=== PATIENT | male | born 1955 | race American Indian/Alaskan Native ===

== ENCOUNTER 2016-08-10 09:40 | Emergency (ER) | payer OTHER ==
[2016-08-10 11:14] VITALS: BP 131/95
[2016-08-10 11:54] LABS: Albumin 5.1 g/dL (3.9-5); Albumin/Globulin Ratio 1.3 %; BUN/Creatinine Ratio 12.5; Bilirubin,Total 0.7 mg/dL (0.1-1.2); Calcium 10.3 mg/dL (8.4-10.2); Total Protein 8.9 g/dL (6.3-8.2)
[2016-08-10 11:55] LABS: Chloride 94.3 mmol/L (98-107)
[2016-08-10 12:00] LABS: Basophils % (Auto) 0.4 % (0.0-1.8); Eosinophils % (Auto) 1.2 % (0.0-4.3); Hematocrit 51.3 % (35.5-45.6); Hemoglobin 17.1 gm/dl (11.8-15.2); Mean Corpuscular HGB Conc 33 % (32-34); Mean Corpuscular Hemoglobin 29 pg (28-32); Mean Corpuscular Volume 88 fl (84-94); Platelet Count 182 K/mm3 (140-440); Red Blood Count 5.84 M/mm3 (3.65-5.03); Red Cell Distribution Width 14.5 % (13.2-15.2); White Blood Count 9.8 K/mm3 (4.5-11.0)
--- NOTE | 2016-08-13 15:17 | ED Elopement Review ---
ED Pt Elopement review - Results review Lab results: Laboratory Tests 08/10/16 08/10/16 08/10/16 11:18 11:18 14:27 WBC 9.8 RBC 5.84 H Hgb 17.1 H Hct 51.3 H MCV 88 MCH 29 MCHC 33 RDW 14.5 Plt Count 182 Lymph % (Auto) 14.2 [place] % (Auto) 11.0 H Eos % (Auto) 1.2 Baso % (Auto) 0.4 Lymph # 1.4 [place] # 1.1 H Eos # 0.1 Baso # 0.0 Seg Neutrophils % 73.2 H Seg Neutrophils # 7.2 Sodium 135 L Potassium 4.0 Chloride 94.3 L Carbon Dioxide 22 Anion Gap 23 BUN 35 H Creatinine 2.8 H Estimated GFR 28 BUN/Creatinine Ratio 12.50 Glucose 106 H Calcium 10.3 H Total Bilirubin 0.7 AST 19 ALT 11 Alkaline Phosphatase 64 Troponin T 0.016 0.021 Total Protein 8.9 H Albumin 5.1 H Albumin/Globulin Ratio 1.3 Lipase 42 - Call Back decision Pt Call Back Decision: Call pt to return to ED [facility] (renal Failure abd pain)
== END 2016-08-10 19:41 | disposition left against medical advice (07) ==
LOC: ED 09:40
DX: R11.2 Nausea with vomiting, unspecified (principal); R10.13 Epigastric pain; R10.12 Left upper quadrant pain; F17.200 Nicotine dependence, unspecified, uncomplicated; I10 Essential (primary) hypertension; E78.00 Pure hypercholesterolemia, unspecified; Z53.21 Procedure and treatment not carried out due to patient leaving prior to being seen by health care provider
CPT/HCPCS: 36415; 80053; 83690; 84484; 85025; 93005; 93010

== ENCOUNTER 2020-08-06 10:39 | Emergency (ER) | payer OTHER ==
--- NOTE | 2020-08-06 11:36 | Emergency Department Report ---
ED Lower Extremity HPI - General Chief Complaint: Extremity Injury, Lower Stated Complaint: LT ANKLE INJURY Time Seen by Provider: 08/06/20 11:30 Source: patient Mode of arrival: Ambulatory Limitations: No Limitations - History of Present Illness Initial Comments: 64-year-old male with a past medical history of hypertension and thyroid disease presents to the ER today with complaints of injury to his left ankle/left foot. Patient states that yesterday he was walking down his back steps when he missed a step fell and "rolled" his left ankle. He states that it was about 4-5 steps, and he was snf down when his injury occurred. Patient denies any head injury. He complains mainly of medial, lateral and anterior ankle pain and pain lateral left foot. He reports pain with movement of the ankle and the foot and with ambulation and weightbearing. He reports no swelling, bruising, erythema or any other symptoms at this time. MD Complaint: ankle injury, foot injury -: Sudden (yesterday ) - Related Data Home Medications Medication Instructions Recorded Confirmed Last Taken Lisinopril/Hydrochlorothiazide 1 tab PO QDAY 08/27/14 08/06/20 03/11/15 [Zestoretic 20-12.5 mg] Simvastatin 20 mg PO QHS 08/27/14 08/06/20 03/11/15 Previous Rx's Medication Instructions Recorded Last Taken Type Naproxen [Naprosyn] 500 mg PO BID #20 tablet 08/06/20 Unknown Rx Allergies Allergy/AdvReac Type Severity Reaction Status Date / Time mushroom AdvReac Rash Verified 08/06/20 10:47 ED Review of Systems ROS: Stated complaint: LT ANKLE INJURY Other details as noted in HPI Comment: All other systems reviewed and negative Constitutional: denies: chills, fever Eyes: denies: eye pain, eye discharge, vision change ENT: denies: ear pain, throat pain Respiratory: denies: cough, shortness of breath, SOB with exertion, SOB at rest, wheezing Cardiovascular: denies: chest pain, palpitations Endocrine: no symptoms reported Gastrointestinal: denies: abdominal pain, nausea, diarrhea Genitourinary: denies: urgency, dysuria, frequency, hematuria, discharge, testicular pain, testicular mass Musculoskeletal: arthralgia. denies: joint swelling Skin: denies: rash, lesions Neurological: denies: headache, weakness, paresthesias Psychiatric: denies: anxiety, depression, auditory hallucinations, visual hallucinations, homicidal thoughts Hematological/Lymphatic: denies: easy bleeding, easy bruising ED Past Medical Hx - Past Medical History Hx Hypertension: Yes Hx of Cancer: Yes (prostate) Additional medical history: hyperthyroid. high cholesterol. R ing her[place]. CAD. ENLARGED HEART - Surgical History Additional Surgical History: Prostate removal - Social History Smoking Status: Current Every Day Smoker Substance Use Type: None - Medications Home Medications: Home Medications Medication Instructions Recorded Confirmed Last Taken Type Lisinopril/Hydrochlorothiazide 1 tab PO QDAY 08/27/14 08/06/20 03/11/15 History [Zestoretic 20-12.5 mg] Simvastatin 20 mg PO QHS 08/27/14 08/06/20 03/11/15 History Naproxen [Naprosyn] 500 mg PO BID #20 tablet 08/06/20 Unknown Rx ED Physical Exam - General Limitations: No Limitations General appearance: alert, in no apparent distress - Head Head exam: Present: atraumatic, normocephalic, normal inspection - Eye Eye exam: Present: normal appearance, PERRL, EOMI Pupils: Present: normal accommodation - ENT ENT exam: Present: normal exam, mucous membranes moist - Neck Neck exam: Present: normal inspection, full ROM - Respiratory Respiratory exam: Present: respiratory distress. Absent: normal lung sounds bilaterally - Cardiovascular Cardiovascular Exam: Present: regular rate, normal rhythm, normal heart sounds - GI/Abdominal GI/Abdominal exam: Present: soft. Absent: distended, tenderness, guarding - Expanded Lower Extremity Exam Left Ankle exam: Present: normal inspection, full ROM, tenderness (Mild tenderness to the anterior left ankle ). Absent: swelling, abrasion, laceration, ecchymosis, deformity, crepidus, dislocation, erythema Foot/Toe exam: Present: normal inspection, full ROM, tenderness (Mild tenderness to palpation to the base of the fifth metatarsal bone), tenderness at base of 5th metatarsal. Absent: swelling, abrasion, laceration, ecchymosis, deformity, crepidus, dislocation, erythema, amputation, puncture wound, foreign body, calcaneal tenderness, nail avulsion, subungual hematoma Neuro vascular tendon exam: Present: no vascular compromise Gait: Positive: observed and normal - Neurological Exam Neurological exam: Present: alert, oriented X3, CN II-XII intact, normal gait - Psychiatric Psychiatric exam: Present: normal affect, normal mood - Skin Skin exam: Present: intact ED Course Vital Signs 08/06/20 08/06/20 10:44 13:01 Temperature 98.2 F Pulse Rate 98 H 89 Respiratory 18 Rate Blood Pressure 175/115 Blood Pressure 156/95 [Left] O2 Sat by Pulse 98 97 Oximetry ED Lower Extremity MDM - Radiology Data Radiology results: report reviewed Patient: NEWTON ESTEVEZ JR MR#: [id number] : 1955 Acct:[id number] Age/Sex: 64 / M ADM Date: 08/06/20 Loc: ED Attending Dr: Ordering Physician: MORENITA FERRERA Date of Service: 08/06/20 Procedure(s): XR foot 3+V LT Accession Number(s): [id number] cc: MORENITA FERRERA Fluoro Time In Minutes: LEFT FOOT 3 VIEW(S) INDICATION / CLINICAL INFORMATION: foot injury COMPARISON: None available. FINDINGS: BONES / JOINT(S): No acute fracture or subluxation. There is a hallux valgus deformity. Inferior calcaneal enthesopathy is noted. SOFT TISSUES: No significant abnormality. ADDITIONAL FINDINGS: None. Signer Name: Karen Urias MD Signed: 08/06/2020 12:12 PM Workstation Name: [id number] Transcribed By: SS Dictated By: KAREN URIAS Electronically Authenticated By: KAREN URIAS Signed Date/Time: 08/06/20 1212 DD/ 1211 TD/TT: Patient: NEWTON ESTEVEZ JR MR#: [id number] : 1955 Acct:[id number] Age/Sex: 64 / M ADM Date: 08/06/20 Loc: ED Attending Dr: Ordering Physician: MORENITA FERRERA Date of Service: 08/06/20 Procedure(s): XR ankle 3+V LT Accession Number(s): [id number] cc: MORENITA FERRERA Fluoro Time In Minutes: LEFT ANKLE 3 VIEW(S) INDICATION / CLINICAL INFORMATION: ankle injury COMPARISON: None available. FINDINGS: BONES / JOINT(S): No acute fracture or subluxation. There is inferior calcaneal enthesopathy at the plantar fascial insertion. SOFT TISSUES: No significant abnormality. ADDITIONAL FINDINGS: None. Signer Name: Karen Urias MD Signed: 08/06/2020 12:12 PM Workstation Name: [id number] Transcribed By: SS Dictated By: KAREN URIAS Electronically Authenticated By: KAREN URIAS Signed Date/Time: 08/06/201211 DD/ 11 TD/TT: Critical care attestation.: If time is entered above; I have spent that time in minutes in the direct care of this critically ill patient, excluding procedure time. ED Disposition Clinical Impression: Sprain of foot, Ankle sprain Disposition: TO HOME OR SELFCARE Is pt being admited?: No Does the pt Need Aspirin: No Condition: Stable Instructions: Ankle Sprain, [id number], Foot Sprain, Elastic Bandage and RICE Therapy Additional Instructions: Rest, ice and elevated ankle/foot for the next 2-3 days. You can use timothy wrap as instructed. Take the naproxen as prescribed. Follow up with Ortho in 1-2 weeks if symptoms persist. Return to ED if symptoms worsens or changes in anyway. Prescriptions: Naproxen [Naprosyn] 500 mg PO BID #20 tablet Referrals: KAITLYNN RAUSCH MD [Staff Physician] - 3-5 Days Time of Disposition: 12:47
--- NOTE | 2020-08-06 12:16 | XRay Report ---
LEFT FOOT 3 VIEW(S) INDICATION / CLINICAL INFORMATION: foot injury COMPARISON: None available. FINDINGS: BONES / JOINT(S): No acute fracture or subluxation. There is a hallux valgus deformity. Inferior calc aneal enthesopathy is noted. SOFT TISSUES: No significant abnormality. ADDITIONAL FINDINGS: None. Signer Name: Sean Urias MD Signed: 08/06/2020 12:12 PM Workstation Name: [id number]
--- NOTE | 2020-08-06 12:16 | XRay Report ---
LEFT ANKLE 3 VIEW(S) INDICATION / CLINICAL INFORMATION: ankle injury COMPARISON: None available. FINDINGS: BONES / JOINT(S): No acute fracture or subluxation. There is inferior calcaneal enthesopathy at the p lantar fascial insertion. SOFT TISSUES: No significant abnormality. ADDITIONAL FINDINGS: None. Signer Name: Sean Urias MD Signed: 08/06/2020 12:12 PM Workstation Name: [id number]
[2020-08-06 13:02] VITALS: BP 156/95
== END 2020-08-06 13:02 | disposition home or self-care (01) ==
LOC: ED 10:39
DX: S93.402A Sprain of unspecified ligament of left ankle, initial encounter (principal); S93.602A Unspecified sprain of left foot, initial encounter; I10 Essential (primary) hypertension; F17.200 Nicotine dependence, unspecified, uncomplicated; Z98.890 Other specified postprocedural states; Z91.018 Allergy to other foods; W10.9XXA Fall (on) (from) unspecified stairs and steps, initial encounter; Y93.89 Activity, other specified; Y92.89 Other specified places as the place of occurrence of the external cause; Y99.8 Other external cause status